=== PATIENT | female | born 1995 | race African-American/Black ===

== ENCOUNTER 2020-01-27 22:18 | Emergency (ER) | payer OTHER ==
[~2020-01-27] VITALS: Ht 165.1 cm; Wt 52.2 kg
[2020-01-27 22:21] VITALS: Ht 165.1 cm; Wt 52.2 kg
[2020-01-27 23:38] VITALS: BP 123/83
== END 2020-01-27 23:38 | disposition other institution (70) ==
LOC: ED 22:18
DX: Z02.89 Encounter for other administrative examinations (principal)